=== PATIENT | male | born 1975 | race Caucasian/White ===

== ENCOUNTER 2020-04-17 20:42 | Emergency (ER) | payer OTHER ==
[2020-04-17 23:01] LABS: BASOPHIL 0.7 % (0-2); EOSINOPHIL 1.5 % (0-5); HCT 51.4 % (42.0-52.0); HGB 17.6 g/dl (13.2-18.0); LYMPHOCYTE 29.7 % (15-48); MCH 30.9 pg (25.0-31.0); MCHC 34.2 g/dL (32.0-36.0); MCV 90.3 fL (78.0-100.0); MONOCYTE 6.8 % (0-12); NRBC 0; PLT 354 K/uL (150-400); RBC 5.69 M/uL (4.70-6.00); RDW 12.8 % (11.5-14.0); WBC 8.7 K/uL (4.0-10.5)
[2020-04-17 23:11] LABS: ALBUMIN 4.5 g/dL (3.4-5.0); BILIRUBIN - TOTAL 0.9 mg/dL (0.2-1.0); BUN/CREAT RATIO (CALC) 16.3 RATIO; CREATININE 1.04 mg/dL (0.67-1.17); GLOBULIN (CALCULATION) 3.8 g/dL; MAGNESIUM 2.2 mg/dL (1.8-2.4); POTASSIUM 3.5 mmol/L (3.5-5.1); TOTAL PROTEIN 8.3 g/dL (6.4-8.2)
[2020-04-19] MEDS ORDERED: CRESTOR5 MG PO (18:16)
[2020-04-19] MEDS ORDERED: COZAAR25 MG PO (18:18)
[2020-04-19] MEDS ORDERED: ATARAX25 MG PO (18:19)
== END 2020-04-18 00:59 | disposition home or self-care (01) ==
LOC: FER 20:42
PROVIDERS: Emergency Medicine
DX: R00.2 Palpitations (principal); I10 Essential (primary) hypertension; R09.02 Hypoxemia; Z86.16 Personal history of COVID-19
CPT/HCPCS: 36415; 80053; 83735; 84484; 85025; 85379; 93005

== ENCOUNTER 2020-04-19 12:40 | Day surgery (SDCO) | payer OTHER ==
[2020-04-19 14:09] LABS: BASOPHIL 0.8 % (0-2); EOSINOPHIL 1.4 % (0-5); HCT 47.7 % (42.0-52.0); HGB 16.9 g/dl (13.2-18.0); LYMPHOCYTE 16.7 % (15-48); MCH 31.4 pg (25.0-31.0); MCHC 35.4 g/dL (32.0-36.0); MCV 88.5 fL (78.0-100.0); MONOCYTE 9.2 % (0-12); MPV 9.5 fL (6.0-9.5); NEUTROPHIL 71.6 % (41-80); NRBC 0; PLT 314 K/uL (150-400); RBC 5.39 M/uL (4.70-6.00); RDW 12.7 % (11.5-14.0)
[2020-04-19 14:19] LABS: INR 1.06 (0.9-1.2); PROTHROMBIN TIME 13.1 SECONDS (11.4-13.6); PTT 21.9 SECONDS (22.2-34.7)
[2020-04-19 14:20] LABS: D-DIMER 1.15 ug/mLFEU (0.00-0.41)
[2020-04-19 14:24] LABS: IRON % SATURATION 21.9 %SAT (20-50)
[2020-04-19 14:32] LABS: PRO-BNP 9 pg/mL (<125)
[2020-04-19 14:39] LABS: ALBUMIN 4.2 g/dL (3.4-5.0); BILIRUBIN - TOTAL 0.9 mg/dL (0.2-1.0); BUN/CREAT RATIO (CALC) 14.5 RATIO; C-REACTIVE PROTEIN 0.8 mg/dL (<=0.90); CREATININE 1.17 mg/dL (0.67-1.17); FT4 (FREE T4) 1.5 ng/dL (0.76-1.46); GLOBULIN (CALCULATION) 3.7 g/dL; MAGNESIUM 2.1 mg/dL (1.8-2.4); PHOSPHORUS 1.7 mg/dL (2.6-4.7); POTASSIUM 3.8 mmol/L (3.5-5.1); TOTAL PROTEIN 7.9 g/dL (6.4-8.2)
[2020-04-19 14:45] LABS: CORONAVIRUS 2019 SARS-COV-2 POSITIVE (NEGATIVE)
[2020-04-19 14:46] LABS: INFLUENZA A NAA NEGATIVE (NEGATIVE)
[2020-04-19] MEDS ORDERED: CRESTOR5 MG PO (18:16)
[2020-04-19] MEDS ORDERED: COZAAR25 MG PO (18:18)
[2020-04-19] MEDS ORDERED: ATARAX25 MG PO (18:19)
[2020-04-19 18:31] LABS: BILIRUBIN NEGATIVE (NEGATIVE); BLOOD NEGATIVE Ery/uL (NEGATIVE); CLARITY CLEAR (CLEAR); COLOR YELLOW (YELLOW); GLUCOSE (U) NORMAL (NORMAL); LEUKOCYTES NEGATIVE Leu/uL (NEGATIVE); NITRITE NEGATIVE (NEGATIVE); PROTEIN NEGATIVE (NEGATIVE); UROBILINOGEN 0.2 mg/dL (0.2-1.0)
[2020-04-20 03:54] LABS: BASOPHIL 0.9 % (0-2); EOSINOPHIL 2.7 % (0-5); HCT 47.1 % (42.0-52.0); HGB 16.2 g/dl (13.2-18.0); LYMPHOCYTE 37.5 % (15-48); MCH 30.9 pg (25.0-31.0); MCHC 34.4 g/dL (32.0-36.0); MCV 89.9 fL (78.0-100.0); MPV 9.7 fL (6.0-9.5); NEUTROPHIL 49.5 % (41-80); NRBC 0; PLT 298 K/uL (150-400); RBC 5.24 M/uL (4.70-6.00); RDW 12.8 % (11.5-14.0); WBC 8.2 K/uL (4.0-10.5)
[2020-04-20 04:09] LABS: BUN/CREAT RATIO (CALC) 14.7 RATIO; CREATININE 1.09 mg/dL (0.67-1.17); POTASSIUM 3.7 mmol/L (3.5-5.1)
[2020-04-20] MEDS ORDERED: LOPRESSOR25 MG PO (12:53)
--- NOTE | 2020-04-20 14:47 | NUR ---
1415 PT DISCHARGED, DISCHARG INSTRUCTIONS DISCUSSED WITH PT VERBALIZED UNDERSTANDING. PT AMBULATED SELF TO FRIENDS CAR. WAS TOLD TO CALL WHEN HIS RIDE ARRIVED AT FACILITY, BUT PT WALKED HIS SELF OUT WITHOUT CALLING FOR HELP.
== END 2020-04-20 14:15 | disposition home or self-care (01) ==
LOC: FER 12:40 → FTCU 16:51
PROVIDERS: Emergency Medicine; ADMIT Internal Medicine
DX: U07.1 COVID-19 (principal); I47.2 Ventricular tachycardia; R00.2 Palpitations; R07.89 Other chest pain; K76.0 Fatty (change of) liver, not elsewhere classified; I10 Essential (primary) hypertension; E78.5 Hyperlipidemia, unspecified; F41.9 Anxiety disorder, unspecified; A41.9 Sepsis, unspecified organism; K38.1 Appendicular concretions; N32.89 Other specified disorders of bladder; Z79.899 Other long term (current) drug therapy
CPT/HCPCS: 36415; 36600; 71260; 80048; 80053; 81003; 82550; 82728; 82803; 83540; 83550; 83605; 83615; 83690; 83735; 83880; 84100; 84145; 84439; 84443; 84484; 85025; 85379; 85610; 85730; 86140; 93005; G0378; Q9967; U0002